=== PATIENT | female | born 1990 | race American Indian/Alaskan Native ===

== ENCOUNTER 2020-09-04 18:32 | Outpatient (CLI) | payer MEDICAID ==
[2020-09-04 19:00] VITALS: BP 135/80
[2020-09-04] MEDS ORDERED: oxyCODONE /ACETAMINOPHEN 5-325MG TAB PO ONE (19:01)
[2020-09-04 19:11] LABS: Bacteria,Urine 1+ /HPF (Negative); Bilirubin,Urine NEG (Negative); Blood,Urine NEG (Negative); Color,Urine Yellow (Yellow); Mucus,Urine FEW /HPF; Protein,Urine <15 mg/dL mg/dL (Negative); Urobilinogen,Urine < 2.0 mg/dL (<2.0)
[2020-09-04] MEDS ORDERED: LACTATED RINGERS 1,000 ML IV SCH (19:45)
[2020-09-04] MEDS ORDERED: MEPERIDINE 25 MG/1 ML INJ IM ONE (20:53)
== END 2020-09-04 20:48 | disposition home or self-care (01) ==
LOC: TRG 18:32 → APU 18:33 → TRG 20:48
DX: O26.893 Other specified pregnancy related conditions, third trimester (principal); R10.2 Pelvic and perineal pain; O47.03 False labor before 37 completed weeks of gestation, third trimester; Z3A.34 34 weeks gestation of pregnancy
CPT/HCPCS: 59025; 81001; 96372; J2175